=== PATIENT | male | born 1965 | race Caucasian/White ===

== ENCOUNTER 2020-08-13 15:30 | Outpatient (CLI) | payer OTHER | END 2020-08-13 23:59 | disposition home or self-care (01) | LOC: CFH 15:30 | PROVIDERS: ATTEND Family Medicine | DX: Z12.2 Encounter for screening for malignant neoplasm of respiratory organs (principal); F17.210 Nicotine dependence, cigarettes, uncomplicated; J84.10 Pulmonary fibrosis, unspecified | CPT/HCPCS: 71271 ==